=== PATIENT | female | born 1960 | race Caucasian/White ===

== ENCOUNTER 2020-01-19 15:25 | Emergency (ER) | payer OTHER, SELFPAY ==
[2020-01-19 15:30] VITALS: BP 136/90; PULSE 78; RESP 14; TEMP 36.4; O2SAT 98; BMI 33.6
--- NOTE | 2020-01-19 15:39 | XR_ITS ---
WS: [id number] LEFT SECOND FINGER 3 VIEW TECHNIQUE: PA, oblique and lateral. HISTORY: Trauma. COMPARISON: None available. Comminuted fracture with soft tissue swelling involving the terminal tuft of the second finger. There are additional small osseous fragments at the second DIP joint and partial subluxation at the DIP roberto int. Mild soft tissue edema. XR/XR finger LT min 2V [id number] IMPRESSION: 1. Comminuted fracture terminal tuft second finger. 2. Small osseous fragments at the second DIP joint along with partial subluxat ion.
--- NOTE | 2020-01-19 15:40 | ED_ITS ---
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 Patient states her tetanus was within the last year. complaint: injury to: left and finger Onset (ago): minute(s) Other Extremity Injury: Left: fingers Other injuries: none Handedness: right Place: home Relieving factors: none Exacerbating factors: movement of extremity Associated symptoms: Reports no associated symptoms Review of Systems Skin/Breast: Reports: other (skin laceration; L 2nd finger) Neuro: Denies: numbness in extremities or changes in sensation PFS ED PFSH: Social History Smoking and tobacco status: never smoked Physical Exam Const: COMMON NORMALS: no apparent distress, average body habitus, oriented x3, no limitations, healthy appearing, alert and well nourished Extremity: OTHER: laceration overlying the dorsal extending around to volar surface DIP joint of L 2nd digit; there is an extensor tendon laceration causing unopposed flexion of the DIP joint; small nail laceration probably extending into nailbed noted Neuro: COMMON NORMALS: oriented x3 SENSORIUM/ORIENTATION: Yes alert Skin: OTHER: see extremity assessment Procedures Laceration Laceration 1: Site: hand (finger ) Side (If applicable): left Size (cm): 2.0 Description: irregular Depth: simple, single layer Local Anesthetic: lidocaine 1% Amount of anesthesia used (mL): 3.0 Pre-repair: wound explored (extensor tendon laceration present ) and irrigated extensively Skin layer closed with: nylon Size (cm): 4-0 Number of sutures: 9 Technique: simple, interrupted Subcutaneous layer closed with: vicryl (through nail bed/nail plate) Size: 5-0 Number of sutures: 2 Technique: simple, interrupted Course Vital Signs: Vital signs: Vital Signs Temperature 97.6 F 01/19/20 15:30 Pulse Rate 78 01/19/20 17:28 Respiratory Rate 16 01/19/20 17:28 Blood Pressure 116/75 01/19/20 17:28 Pulse Oximetry 98 01/19/20 17:28 MDM - Extremity Injury (Upper) MDM Narrative: Medical decision making narrative: Pt was given IV abx here. The finger was repaired as documented and splinted with the DIP joint extended. She [place] [facility] [place] if [place] as she is an [employer] [place] and her out of network deductible is high. Will go ahead and have CM try to set her up with an appointment to see Dr. Gilmore in hopes that he can repair her digit. She was warned that a hand surgeon may be warranted. Patient will be given pain medications and oral antibiotics. Imaging Data^: L index finger XR: Radiologist's impression: [address] [address] XRay Report Signed Patient: Yolande Linder Unit #: [id number] : 1960 Age/Sex: 59 / F ADM Date: 01/19/20 Loc: ER Room/Bed: Attending Dr: Ordering Provider/Ordering MD: Marisol Starr Date of Service: 01/19/20 Procedure(s): XR finger LT min 2V [id number] Accession Number(s): [id number] Report Number: [id number] WS: [id number] LEFT SECOND FINGER 3 VIEW TECHNIQUE: PA, oblique and lateral. HISTORY: Trauma. COMPARISON: None available. Comminuted fracture with soft tissue swelling involving the terminal tuft of the second finger. There are additional small osseous fragments at the second DIP joint and partial subluxation at the DIP joint. Mild soft tissue edema. XR/XR finger LT min 2V [id number] IMPRESSION: 1. Comminuted fracture terminal tuft second finger. 2. Small osseous fragments at the second DIP joint along with partial subluxation. Dictated By: Angelica Zhang DO Signed By: Angelica Zhang DO Signed Date/Time: 01/19/201621 DD/ 16 Discharge Plan Discharge Patient Disposition: Home, Self-Care Clinical Impression: Open fracture of tuft of distal phalanx of finger, Subluxation of distal interphalangeal (DIP) joint of finger, Laceration of finger, left, with tendon Condition: Stable Prescriptions: New hydrocodone-acetaminophen 5-325 mg tablet 1 tab PO Q4H PRN (Reason: pain) Qty: 20 RF: 0 Keflex 500 mg capsule 500 mg PO Q6H 7 Days Qty: 28 RF: 0 No Action levothyroxine 75 mcg tablet 75 mcg PO DAILY RF: 0 sertraline 50 mg tablet 25 mg PO DAILY RF: 0 duloxetine 30 mg capsule,delayed release(DR/EC) 30 mg PO DAILY RF: 0 Linzess 290 mcg capsule 290 mcg PO DAILY PRN (Reason: unknown) RF: 0 Discharge Orders: Discharge Order (Routine); Ordered 01/19/20 Ordered By: Marisol Starr Referrals: Shama Feliz MD [Primary Care Provider] - Activity Restrictions/Additional Instructions: Keep splint and dressing on finger at all times apart from cleansing wound which you need to be doing with warm soapy water several times daily. We will get you follow-up with Dr. Gilmore in hopes that he can repair your finger instead of having to send you to a hand surgeon in [place]. Monitor for signs of infection such as redness, drainage, increased pain. Interventions: ED Discharge Assessment Last Done: 01/19/20 17:28 Discharge Date/Time: 01/19/20 17:28 Coding Level of Care Code ED Senior It Project Manager for Helena Weldon Exam Problem Focused
[2020-01-19] MEDS: ondansetron 2 mg/ML SDV 2 mL 4 MG IVP (15:45)
[2020-01-19 15:47] VITALS: RESP 16
[2020-01-19] MEDS: morphine 4 mg/mL SDV 1 mL IVP (15:47)
[2020-01-19] MEDS: ceFAZolin 1,000 mg SDV 1000 MG IVP (15:59)
--- NOTE | 2020-01-19 17:26 | PC.NURSE ---
Wound dressing: Wound cleaned with saline after wound repair. Wound dressed with non-stick dressing and wrapped with kerlix
[2020-01-19 17:28] VITALS: BP 116/75; PULSE 78; RESP 16; O2SAT 98
--- NOTE | 2020-01-20 11:34 | DCPLANNER ---
internet manager had message to schedule a follow up appointment for patient with ortho. internet manager called the ortho clinic, spoke with Samia, gave clinic patients information. internet manager was told that patients information would be printed and reviewed. Clinic will call residential case manager and patient with appointment information.
--- NOTE | 2020-02-06 15:16 | DCPLANNER ---
Patient had follow up appointment scheduled for 01.23.20 and patient did attend the appointment.
== END 2020-01-19 17:28 | disposition home or self-care (01) ==
PROVIDERS: Emergency Provider Physician Assistant; Family Provider Internal Medicine; PCP Internal Medicine
DX: S62.631B Displaced fracture of distal phalanx of left index finger, initial encounter for open fracture (principal); S66.321A Laceration of extensor muscle, fascia and tendon of left index finger at wrist and hand level, initial encounter; W31.89XA Contact with other specified machinery, initial encounter
CPT/HCPCS: 12041; 12044; 12345; 29130; 73140; 96374; 96375; 99283; J0690; J2270; J2405

== ENCOUNTER 2020-01-23 11:12 | Day surgery (SDC) | payer OTHER, SELFPAY ==
--- NOTE | 2020-01-23 | XR_ITS ---
WS: [id number] INTRAOPERATIVE TECHNIQUE: 2 Spot fluoroscopic images for intraoperative purposes. FLUOROSCOPY TIME: 2 seconds CLINICAL INFORMATION: ORIF LEFT INDEX FINGER COMPARISON: None. FINDINGS: Percutaneous pin fixation across the second DIP. XR/XR finger LT min 2V [id number] IMPRESSION: Images obtained for intraoperative purposes.
--- NOTE | 2020-01-23 | SCC_ITS ---
Procedure Done: Debridement of wound to include skin, subcutaneous tissue, tendinous tissue left index finger Pinning of near amputated distal phalanx to middle phalanx for stabilization of soft tissues and to protect repair Repair of extensor tendon to left index finger using palmaris longus tendon interposition autograft. 2 seconds of fluoroscopic guidance, for a cumulative dose of 4.68 mGy, was provided to Dr. Gilmore by the radiology department. C-arm images of the LEFT finger were saved for the patient's permanent record. CHLOÉ
--- NOTE | 2020-01-23 11:42 | P.ANESASSM_ITS ---
Pre-Anesthetic Assessment Pre-Anesthetic Assessment: Height/Weight: Height 1.63 m Preop Diagnosis: Extensor tendon laceration left index finger Proposed Procedure: Operation Date: 01/23/20 13:45 Proposed Procedures p Left index finger extensor tendon repair with pinning and possible [place] 98306 S61.219A(Left) - Boaz Gilmore DO Familial anesthetic complications: None Was Beta Jamir taken within 24 hours: N/A Last intake: NPO > 8 hrs, except sips of water with pills Social: Social History: No alcohol and No tobacco Exam: Pre-Anes Outpt Exam: alert, oriented x 3, clear to auscultation bilaterally and regular rate & rhythm Airway: Cervical ROM: WNL Additional comments: missing Pulmonary: Pulmonary: None reported CV/HEM: CV/HEM: None reported : : None reported Hepatic: Hepatic: None reported GI: GI: None reported Metabolic: Metabolic: Thyroid Musc/skel: Musc/skel: None reported Comments: Finger Laceration Neuropsych: Neuropsych: Depression Anesthetic Plan: ASA status: 2 Anesthesia: Regional (specify below) Other: gloria block Risk of > 500 ml blood loss (7ml/kg in children): No PFSH Anesthesia PFSH: Social History Smoking and tobacco status: never smoked Data Anesthesia Cardiac Studies: No Data to Display
[2020-01-23 12:11] VITALS: BP 128/70; PULSE 86; RESP 18; O2SAT 94
[2020-01-23 12:37] VITALS: BMI 32.5
[2020-01-23] MEDS: ketorolac 30 mg/mL INJ IVP (12:53)
[2020-01-23] MEDS: sodium chloride 0.9% 1,000 ML 30 ML IV (12:55)
[2020-01-23] MEDS: cefUROXime 1,500 MG in sodium chloride 0.9% (plus) 50 ML 100 MG IV (12:55)
[2020-01-23] MEDS: neomycin-poly-bacitracin oint 28 gm 1 APPLIC TOPICAL (14:45)
[2020-01-23] MEDS: lidocaine 1% INJ 20 mL SUBCUT (14:57)
[2020-01-23 15:07] VITALS: BP 145/79; PULSE 71; RESP 18; TEMP 36.4; O2SAT 93
[2020-01-23 15:15] VITALS: BP 152/84; PULSE 70; RESP 18; O2SAT 98
[2020-01-23 15:22] VITALS: BP 162/96; PULSE 71; RESP 18; O2SAT 97
--- NOTE | 2020-01-23 15:36 | P.OP_ITS ---
Operative Report Date of procedure: January 23, 2020 Pre-op Diagnosis: Extensor tendon laceration left index finger Post-op Diagnosis: Open fracture distal phalanx left index finger Post-op Findings: Near complete amputation of left index finger at the distal interphalangeal joint Approximately 60% flexor tendon laceration at distal interphalangeal joint Complete laceration of extensor tendon with shredding and loss of tendon substance. Some maceration of skin on the dorsum of the left index finger Procedure Done: Debridement of wound to include skin, subcutaneous tissue, tendinous tissue left index finger Pinning of near amputated distal phalanx to middle phalanx for stabilization of soft tissues and to protect repair Repair of extensor tendon to left index finger using palmaris longus tendon interposition autograft. treatment without manipulation of open fracture distal phalanx left index finger Implants: One 0.045 inch K wire Specimens removed/disposition: Debrided tissues from wound disposed of in OR Aerobic and anaerobic cultures submitted at beginning of case prior to washing out of wound Pathology: other (cultures sent) Surgeon: Boaz Gilmore Anesthesia: Other (Theodora block) Estimated blood loss (mL): 5 Tourniquet time (min): 107 Complications: No apparent complications Findings: This factory placement of pin stabilizing the DIP joint of the left index finger at 0 degrees flexion extension. Condition: stable Disposition: same day Brief History: 59-year-old white female who was using a grinder gear and had the misfortune of sticking her gloved hand near the drive belt and her finger was sucked into the mechanism causing sustained a laceration to her index finger. She was seen in the emergency room and felt to have extensor tendon laceration she had obvious droop posture to the index finger at the DIP joint. Wound was irrigated incision was closed loosely she was started on Keflex and referred for orthopedic care. She had some concern with streaking and saw her primary care doctor who advised her to go to the emergency room hospital in [place]. She was seen in the emergency room and was informed that she would have to be referred to a hand surgeon in the area in [place] and they would not see her until next week. Our office had been attempting to contact the patient and she was seen in the office today on the date of surgery January 23, 2020 and noted that she was able to slightly flex the index finger of the left hand at the DIP and PIP joints. She was unable to extend the index finger at the DIP joint. Sensation is decreased to the tip of the finger. The finger had a ruborous look but did not appear frankly cyanotic. There is no streaking proximally up the arm. I recommended to her that we remove sutures explore the wound it appears that her flexor tendon is intact and does not require surgery does appear that her extensor mechanism is completely disrupted. As this is not a sharp laceration or could be maceration to the tendon and I discussed with her potential need for an interposition autograft. She was agreeable to proceed with surgery. Risk of surgery include but are not limited to infection, nerve/blood vessel/injury, failure of the repair, stiffness at the joint. Risks of surgery also include blood clots, heart attack, stroke risk up to including . Procedure: 1.5 g Zinacef Patient identified. Surgical site signed. Surgical permit signed. Patient was taken to the operating room. She is transferred to the operating room table. She is placed under general anesthesia without difficulty. A tourniquet was placed about the upper aspect of the left arm. The operative limb was then sterilely prepped and draped usual fashion. A timeout was performed. The operative limb was exsanguinated using Esmarch bandage tourniquet inflated 250 mmHg pressure. Removed previously placed sutures in a laceration that was ne cosme circumferential just proximal to the level of the distal interphalangeal joint of the index finger. Purulent fluid was noted as we removed the sutures purulent fluid was expressed and aerobic and anaerobic cultures were obtained. Exploring the wound revealed that the tip of the finger to include the entirety of the distal phalanx was held on solely by a bridge of skin and 60% of the flexor tendon. The remaining portion of this retained flexor tendon is very healthy in appearance without fraying. The wound was irrigated with Betadine-containing saline solution and antibiotic containing saline solution. I then pinned the retrograde fashion with a 0.045 inch K wire distal phalanx to the middle phalanx in neutral. I debrided the skin edges lightly so we could primarily close the wound. The patient's extensor tendon was identified. There was a small portion of the tendon attached at the dorsal lip of the distal phalanx. There is a mop-like remnant of the extensor tendon at the distal to mid level of the middle phalanx buttoning intact extensor expansion over the PIP joint. Recognizing the extensor tendon cannot be repaired primarily. He made a series of short incision on the volar aspect of the forearm and harvested the palmaris longus longus tendon. The free end of the tendon was sutured to the dorsum of the distal phalanx at the stump of the intact tendon using interrupted sutures of 4054. I made a small transverse incision through the extensor tendon that was intact just distal to the PIP joint. I fed the intact tendon underneath the frayed edges of the extensor tendon deliver the tendon through the small rent and then overlapped it on itself attempting to engage the appropriate tension for the extensor tendon and suturing it in place and cutting off excess tendon at the distal phalanx. I then sutured the tendon graft into the intact proximal extent of the extensor tendon to the index finger using a sutures of 4-0 FiberWire. Then sutured the 2 limbs of the graft that together using a sutures of 4-0 FiberWire. The wounds wounds were irrigated Betadine-containing saline solution followed by antibiotic containing saline solution. The volar incisions were closed with 4-0 nylon on skin. The incision about the index finger that was created to expose the underlying extensor tendon was closed with sutures of 4-0 nylon. A digital block was performed using 10 mL of 1% lidocaine half percent Marcaine. Antibiotic ointment was applied to the incision lines. The K wire was cut outside the tip of the index finger and appropriate sized Jergen's ball was applied. Sterile dressings were applied. Tourniquet was deflated during application of dressings. A dorsal radial gutter splint was applied to the patient's hand with the wrist in neutral/MCP joints flexed to 75? the DIP and PIP joints in full extension. An Leobardo overwrap was applied. The patient was aroused from general anesthesia. She was taken to recovery. She tolerated surgery well. All counts are correct.
[2020-01-23] MEDS: HYDROcodone-acetaminophen 5-325 mg Tablet 1 TAB PO (16:15)
[2020-01-23 17:13] VITALS: PULSE 86; TEMP 36.4
== END 2020-01-23 17:09 | disposition home or self-care (01) ==
PROVIDERS: Family Provider Internal Medicine; PCP Internal Medicine; Visit Provider Orthopaedic Surgery
PROC: (CPT 26420; principal; 2020-01-23 13:25)
DX: S62.631A Displaced fracture of distal phalanx of left index finger, initial encounter for closed fracture (principal); S66.321A Laceration of extensor muscle, fascia and tendon of left index finger at wrist and hand level, initial encounter; W23.0XXA Caught, crushed, jammed, or pinched between moving objects, initial encounter; Z79.1 Long term (current) use of non-steroidal anti-inflammatories (NSAID); F32.9 Major depressive disorder, single episode, unspecified
CPT/HCPCS: 26420; 26765; 12345; 73140; 76000; 87070; 87075; 87205; 96365; 96374; C1713; J0131; J0697; J1580; J1885; J2001; J2250; J2704; J3010; J3490; J7030

== ENCOUNTER → 2020-03-04 08:23 | Outpatient (BNVA) | payer OTHER, SELFPAY | PROVIDERS: Family Provider Internal Medicine; PCP Internal Medicine; Visit Provider Orthopaedic Surgery | DX: S62.639B Displaced fracture of distal phalanx of unspecified finger, initial encounter for open fracture (principal); S61.219A Laceration without foreign body of unspecified finger without damage to nail, initial encounter; S63.24 Subluxation of distal interphalangeal joint of finger; Z48.89 Encounter for other specified surgical aftercare | CPT/HCPCS: 73140 ==

== ENCOUNTER 2020-03-19 06:00 | Outpatient (CLI) | payer OTHER, SELFPAY | END 2020-03-19 06:01 | disposition home or self-care (01) | LOC: SPT 14:37 | PROVIDERS: PCP Internal Medicine; Visit Provider Orthopaedic Surgery | DX: Z46.89 Encounter for fitting and adjustment of other specified devices (principal) | CPT/HCPCS: 97165; L3925 ==

== ENCOUNTER → 2020-04-01 08:31 | Outpatient (BNVA) | payer OTHER, SELFPAY | PROVIDERS: PCP Internal Medicine; Visit Provider Orthopaedic Surgery | DX: M79.645 Pain in left finger(s) (principal) | CPT/HCPCS: 73140 ==

== ENCOUNTER → 2020-05-11 09:06 | Outpatient (BNVA) | payer OTHER, SELFPAY | PROVIDERS: PCP Internal Medicine; Visit Provider Dermatology | DX: L82.1 Other seborrheic keratosis (principal); L73.8 Other specified follicular disorders; L85.3 Xerosis cutis; L57.0 Actinic keratosis; Z12.83 Encounter for screening for malignant neoplasm of skin | CPT/HCPCS: 17000; 17003; 99202; 99203 ==

== ENCOUNTER → 2020-07-05 08:00 | Outpatient (BNVA) | payer OTHER, SELFPAY | PROVIDERS: PCP Internal Medicine; Visit Provider Nurse Practitioner Family | DX: E03.9 Hypothyroidism, unspecified (principal); R53.83 Other fatigue | CPT/HCPCS: 80053; 80061; 82306; 84443; 85025 ==

== ENCOUNTER 2020-07-15 08:55 | Outpatient (CLI) | payer OTHER, SELFPAY ==
--- NOTE | 2020-07-15 09:22 | XR_ITS ---
WS: [id number] Chest 2 views, 07/15/2020 Clinical Data: SHORTNESS OF BREATH Comparison: Portable chest, 07/10/2015. Findings: No nodules, masses or effusions are seen. The heart is normal. The pulmonary vascularity is not increased. No pneumonia or pneumothorax is seen. XR/XR chest 2V* [id number] Impression: Negative chest.
== END 2020-07-15 08:56 | disposition home or self-care (01) ==
LOC: RAD 09:01
PROVIDERS: PCP Internal Medicine; Visit Provider Internal Medicine
DX: R06.02 Shortness of breath (principal)
CPT/HCPCS: 71046

== ENCOUNTER → 2020-07-30 11:37 | Outpatient (BNVA) | payer OTHER, SELFPAY | PROVIDERS: PCP Internal Medicine; Visit Provider Surgery | DX: Z11.59 Encounter for screening for other viral diseases (principal) | CPT/HCPCS: 87635 ==

== ENCOUNTER 2020-09-07 09:36 | Outpatient (CLI) | payer OTHER, SELFPAY ==
--- NOTE | 2020-09-07 09:43 | MM_ITS ---
WS: [id number] Exam: [place] [id number] Date/Time of Exam: 09/07/2020 9:44 AM Reason For Exam: SCREENING VIEWS: MLO and CC views both breasts. Comparison made with prior exam of 10/03/2016. Findings: There was no sign of mass, architectural distortion or suspicious calcification in either breast. Sc attered fibroglandular densities MM/[place] [id number] Impression: BI-RADS: 2-Benign FOLLOW-UP: 1 Year Follow-up This mammogram was also analyzed by the Computer Aided Detection System R2 Imag e Clutch Specialist.
== END 2020-09-07 09:37 | disposition home or self-care (01) ==
PROVIDERS: PCP Internal Medicine; Visit Provider Internal Medicine
DX: Z12.31 Encounter for screening mammogram for malignant neoplasm of breast (principal)
CPT/HCPCS: 77067

== ENCOUNTER → 2020-12-30 11:00 | Outpatient (BNVA) | payer OTHER, SELFPAY | PROVIDERS: PCP Internal Medicine; Visit Provider Internal Medicine | DX: R41.3 Other amnesia (principal); E03.9 Hypothyroidism, unspecified | CPT/HCPCS: 80053; 80061; 82607; 82746; 84443; 85025 ==

== ENCOUNTER 2021-09-19 15:16 | Outpatient (CLI) | payer OTHER, SELFPAY ==
--- NOTE | 2021-09-19 15:25 | MM_ITS ---
WS: [id number] BILATERAL DIGITAL SCREENING MAMMOGRAPHY WITH CAD CLINICAL INFORMATION: SCREENING HISTORY: Screening mammogram. No current complaints. COMPARISON: September 07, 2020 TECHNIQUE: Bilateral CC and MLO views. FINDINGS: The breasts are composed of heterogeneous fibroglandular density tissue, which can limit the detectio n of small underlying mass lesions. No suspicious mass, asymmetry, calcifications, or architectural d istortion. No evidence of malignancy. MM/[place] [id number] IMPRESSION: BI-RADS: 1-Negative FOLLOW UP: 1 Year Follow-up Recommend return to annual screening mammography.
== END 2021-09-19 15:17 | disposition home or self-care (01) ==
LOC: RADSHAW 15:21
PROVIDERS: PCP Internal Medicine; Visit Provider Internal Medicine
DX: Z12.31 Encounter for screening mammogram for malignant neoplasm of breast (principal)
CPT/HCPCS: 77067

== ENCOUNTER → 2021-10-18 16:26 | Outpatient (BNVA) | payer OTHER, SELFPAY | PROVIDERS: PCP Internal Medicine; Visit Provider Internal Medicine | DX: R30.0 Dysuria (principal); R32 Unspecified urinary incontinence; E03.9 Hypothyroidism, unspecified; R09.1 Pleurisy | CPT/HCPCS: 80053; 80061; 83550; 84443; 85651 ==

== ENCOUNTER → 2022-02-16 15:09 | Outpatient (BNVA) | payer OTHER, SELFPAY | PROVIDERS: PCP Internal Medicine; Visit Provider Internal Medicine | DX: R07.9 Chest pain, unspecified (principal); R06.02 Shortness of breath | CPT/HCPCS: 80053; 80061; 82607; 84443; 85025; 85651; 86140 ==

== ENCOUNTER → 2022-07-11 09:10 | Outpatient (BNVA) | payer OTHER, SELFPAY | PROVIDERS: PCP Family Medicine; Visit Provider Family Medicine | DX: Z76.89 Persons encountering health services in other specified circumstances (principal); E03.9 Hypothyroidism, unspecified; M54.31 Sciatica, right side | CPT/HCPCS: 80053; 84439; 84443; 86140 ==

== ENCOUNTER 2022-09-21 08:09 | Outpatient (CLI) | payer OTHER, SELFPAY ==
--- NOTE | 2022-09-21 08:16 | MM_ITS ---
WS: [id number] BILATERAL SCREENING DIGITAL TOMOSYNTHESIS MAMMOGRAM WITH CAD HISTORY: SCREENING COMPARISON: 09/19/2021 and 09/07/2020 Bilateral CC and MLO views with tomosynthesis and synthetic mammography submitted. Computer aided det ection analyzed. Breast composition: There are scattered areas of fibroglandular density. No suspicious masses, microc alcifications or architectural distortion. MM/[place] [id number] IMPRESSION: BI-RADS: 1-Negative FOLLOW UP: 1 Year Follow-up
== END 2022-09-21 08:10 | disposition home or self-care (01) ==
LOC: RAD 08:10
PROVIDERS: PCP Family Medicine; Visit Provider Family Medicine
DX: Z12.31 Encounter for screening mammogram for malignant neoplasm of breast (principal)
CPT/HCPCS: 77063; 77067

== ENCOUNTER 2022-12-13 16:05 | Outpatient (CLI) | payer OTHER, SELFPAY ==
--- NOTE | 2022-12-13 16:41 | XR_ITS ---
WS: [id number] Exam: XR lumbar spine 2-3V* [id number] Date/Time of Exam: 12/13/2022 4:41 PM Reason For Exam: Back pain, incontinence, Sciatica on the Right. No fracture or dislocation. Disc spaces are relatively well maintained. There appears to be partial l umbarization of S1 with left-sided batwing transverse process and pseudoarthrosis. Posterior elements are intact. Osteopenia. Minimal spondylosis. XR/XR lumbar spine 2-3V* [id number] IMPRESSION: 1. Partial lumbarization of S1 with left-sided batwing transverse process and p seudoarthrosis. 2. Minimal degenerative changes and osteopenia.
--- NOTE | 2022-12-13 16:41 | XR_ITS ---
WS: [id number] Exam: XR pelvis 1-2V* [id number] Date/Time of Exam: 12/13/2022 4:41 PM Reason For Exam: Back pain, incontinence, Sciatica on the Right. No acute fracture or dislocation. The hips are intact. Left batwing transverse process of L5 with pse udoarthrosis at the left sacrum. Small nonspecific pelvic calcifications probably phleboliths. XR/XR pelvis 1-2V* [id number] IMPRESSION: 1. No fracture or bone destruction. 2. Partial sacralization of L5 on the left with pseudoarthrosis.
== END 2022-12-13 16:06 | disposition home or self-care (01) ==
LOC: RAD 16:07
PROVIDERS: PCP Family Medicine; Visit Provider Family Medicine
DX: R26.9 Unspecified abnormalities of gait and mobility (principal); R32 Unspecified urinary incontinence; M47.896 Other spondylosis, lumbar region
CPT/HCPCS: 72100; 72170; 81000

== ENCOUNTER 2023-01-10 09:47 | Outpatient (CLI) | payer OTHER, SELFPAY ==
--- NOTE | 2023-01-10 10:15 | MR_ITS ---
WS: [id number] MRI HEAD WITH CONTRAST TECHNIQUE: Sagittal T1, T2 axial, T2 axial FLAIR, axial susceptibility weighted imaging, axial diffus ion weighted images, and coronal T2 images were obtained. Pre and post-T1 axial and post T1 coronal i mages. ADC and FSPGR images. CLINICAL INFORMATION: Memory loss, incontinence, gait disturbance COMPARISON: None. FINDINGS: No evidence of restricted diffusion to suggest acute ischemia. Ventricular system and basal cisterns are patent. Mild small vessel changes. Moderate parenchymal volume loss. Normal posterior fossa. Norm al vascular flow voids at the skull base. No extra-axial fluid collections. No evidence of mass or ma ss effect. Paranasal sinuses are well aerated. Retention cyst or polyp RIGHT sphenoid sinus. RIGHT ma stoid effusion. Normal posterior nasopharynx. No hemosiderin on susceptibly weighted images. Normal optic chiasm and pituitary infundibulum. Temporal lobes and hippocampal formations are normal in appearance. Normal ca vernous sinuses and Meckel's cave. No abnormal intracranial enhancement. Incidental benign venous angioma LEFT frontal lobe laterally. N ormal visualized dural venous sinuses. MR/MR head wo/w con [id number] IMPRESSION: 1. No evidence of restricted diffusion to suggest acute ischemia. 2. Mild small vessel changes with moderate parenchymal volume loss. 3. RIGHT mastoid effusion. Retention cyst or polyp RIGHT sphenoid sinus measur ing 1.4 x 1.1 cm along the sphenoid sinus ostia. 4. RIGHT mastoid effusion. 5. No abnormal intercranial enhancement. 6. Incidental benign venous angioma LEFT posterior frontal lobe laterally.
[2023-01-10] MEDS: gadobenate dimeglumine 20 mL vial IV (10:58)
== END 2023-01-10 09:48 | disposition home or self-care (01) ==
LOC: RAD 09:49
PROVIDERS: PCP Family Medicine; Visit Provider Family Medicine
DX: R26.9 Unspecified abnormalities of gait and mobility (principal); R32 Unspecified urinary incontinence; R41.3 Other amnesia; Q28.3 Other malformations of cerebral vessels
CPT/HCPCS: 70553; A9577

== ENCOUNTER → 2023-01-31 10:13 | Outpatient (BNVA) | payer OTHER, SELFPAY | PROVIDERS: PCP Family Medicine; Visit Provider Family Medicine | DX: R26.9 Unspecified abnormalities of gait and mobility (principal); G62.9 Polyneuropathy, unspecified; R22.43 Localized swelling, mass and lump, lower limb, bilateral; R32 Unspecified urinary incontinence; E03.9 Hypothyroidism, unspecified; R41.3 Other amnesia | CPT/HCPCS: 80053; 80061; 83036; 83735; 84439; 84443; 84481; 85025 ==

== ENCOUNTER → 2023-03-13 14:25 | Outpatient (BNVA) | payer OTHER, SELFPAY | PROVIDERS: PCP Family Medicine; Visit Provider Podiatrist Foot & Ankle Surgery | DX: M72.2 Plantar fascial fibromatosis (principal) | CPT/HCPCS: 73630 ==

== ENCOUNTER 2023-03-20 07:45 | Outpatient (CLI) | payer OTHER, SELFPAY ==
--- NOTE | 2023-03-20 08:00 | MR_ITS ---
WS: [id number] MRI LUMBAR SPINE NONCONTRAST TECHNIQUE: Sagittal T1, T2 and STIR imaging. Axial T1 and T2 imaging. CLINICAL INFORMATION: R29.90 - Unspecified symptoms and signs involving the ner... COMPARISON: None. FINDINGS: Counting performed from the craniocervical junction. 5 lumbar vertebral bodies. S1 is lumba rized. Mild lumbar curve. No acute compression. Slight retrolisthesis L5 on S1. No high-grade central canal stenosis. L1-L2: Shallow RIGHT pericentral protrusion. Slight effacement of the ventral thecal sac. Mild facet arthropathy. Spinal canal and foramen are patent. L2-L3: Mild annular bulging. Mild facet arthropathy. Spinal canal and foramen are patent. Tiny RIGHT foraminal protrusion with mild RIGHT foraminal narrowing. L3-L4: Mild annular bulging. Narrowing of the subarticular recess bilaterally. Mild bilateral foramin al narrowing. L4-L5: Mild annular bulging. Slight impingement RIGHT subarticular recess and traversing RIGHT L5 ner ve root. Mild RIGHT and no LEFT foraminal narrowing. Mild facet arthropathy. L5-S1: Mild annular bulging. Slight impingement subarticular recess bilaterally RIGHT greater than LE FT. Mild RIGHT foraminal narrowing. Mild facet arthropathy. S1-S2: S1 is partially lumbarized. Spinal canal and foramen are patent. Mild facet arthropathy. Visualized pelvic bony structures: Normal. Paravertebral soft tissues: Normal. Central disc protrusions in the mid thoracic spine at T7-T8 and T9-T10 with indentation on the thorac ic cord at T7-T8 with moderate central canal stenosis. Mild central canal stenosis at C5-C6. MR/MR lumbar spine wo con* [id number] IMPRESSION: 1. Counting performed the craniocervical junction. 5 lumbar vertebral bodies. S1 is partially lumbarized 2. Central disc protrusions in the mid thoracic spine at T7-T8 and T9-T10 with indentation on the thoracic cord at T7-T8 with moderate central canal stenosis . Recommend thoracic spine MRI. 3. Small RIGHT foraminal protrusion L2-L3 with mild RIGHT foraminal narrowing. 4. Mild bilateral L3-L4 foraminal narrowing. 5. Annular bulging L4-L5 with slight impingement on the RIGHT subarticular rec ess and mild RIGHT foraminal narrowing. 6. Disc bulging L5-S1 with slight impingement traversing RIGHT greater than LE FT S1 nerve roots. Mild RIGHT foraminal narrowing at this level.
== END 2023-03-20 07:46 | disposition home or self-care (01) ==
PROVIDERS: PCP Family Medicine; Visit Provider Psychiatry & Neurology Neurology
DX: R29.90 Unspecified symptoms and signs involving the nervous system (principal); M51.25 Other intervertebral disc displacement, thoracolumbar region; M48.07 Spinal stenosis, lumbosacral region; M48.04 Spinal stenosis, thoracic region
CPT/HCPCS: 72148

== ENCOUNTER 2023-05-08 13:24 | Outpatient (CLI) | payer OTHER, SELFPAY ==
--- NOTE | 2023-05-08 13:45 | MR_ITS ---
WS: [email or web address] MRI THORACIC SPINE WITHOUT CONTRAST TECHNIQUE: Sagittal T1, T2 and STIR imaging. Axial T2 imaging. Noncontrast imaging obtained. CLINICAL INFORMATION: R93.7 - Abnormal findings on diagnostic imaging of other ... COMPARISON: None. FINDINGS: Moderate thoracic kyphosis. No acute compression. No high-grade central canal narrowing. Mild chronic anterior wedging mid thoracic spine. Central disc protrusions more prominent at T7-T8, T8-T9, T9-T10 with slight indentation on the thoracic cord at these levels with mild central canal stenosis. Cord signal remains normal. Mild disc bulging L1-L2. Mild to moderate facet arthropathy in the lower thora cic spine. T7-T8: Central disc protrusion with indentation on the thoracic cord. Mild central canal stenosis. Fo ramen are patent. T8 -9: Shallow RIGHT pericentral protrusion with indentation the RIGHT ventral thoracic cord. Mild fa cet arthropathy. Mild RIGHT foraminal narrowing. T9-T10: Central disc protrusion with indentation on the thoracic cord. Mild central canal stenosis. M ild facet arthropathy. Mild RIGHT and no significant LEFT foraminal narrowing. Mild bilateral T10-T11 bony foraminal narrowing. Normal caliber thoracic aorta. Partially visualized RIGHT hepatic cyst measuring 2.6 cm. Adrenal glan ds are normal. Mild chronic anterior wedging at T7, T8, and T9. MR/MR thoracic spin wo con* [id number] IMPRESSION: 1. Mild thoracic curve. Moderate Thoracic kyphosis. 2. Chronic anterior wedging at T7, T8 and T9. No acute appearing compression f ractures. 3. Small central disc protrusions at T7-T9 with slight indentation on the thor acic cord and mild central canal stenosis. Cord signal remains normal. 4. Mild to moderate facet arthropathy in the lower thoracic spine. 5. Partially evaluated RIGHT hepatic cyst measuring 2.6 cm.
== END 2023-05-08 13:25 | disposition home or self-care (01) ==
PROVIDERS: PCP Family Medicine; Visit Provider Psychiatry & Neurology Neurology
DX: R93.7 Abnormal findings on diagnostic imaging of other parts of musculoskeletal system (principal); M40.204 Unspecified kyphosis, thoracic region; M48.54XA Collapsed vertebra, not elsewhere classified, thoracic region, initial encounter for fracture; M51.24 Other intervertebral disc displacement, thoracic region; M47.814 Spondylosis without myelopathy or radiculopathy, thoracic region; K76.89 Other specified diseases of liver
CPT/HCPCS: 72146

== ENCOUNTER 2023-05-31 09:00 | Outpatient (CLI) | payer OTHER, SELFPAY ==
--- NOTE | 2023-05-24 09:30 | MR_ITS ---
WS: [email or web address] MRI CERVICAL SPINE NONCONTRAST TECHNIQUE: Sagittal T1, T2 and STIR imaging. Axial T2, gradient, and fiesta imaging. Patient refused gadolinium contrast CLINICAL INFORMATION: M54.9 - Dorsalgia, unspecified COMPARISON: None. FINDINGS: Straightening of the normal cervical lordosis. Disc osteophyte complex C5-C6 with slight retrolisthes is C5 on C6. Cord signal is normal. Mild central canal stenosis C5-C6 with slight indentation on cerv ical cord. C2-C3: Normal. C3-C4: Mild facet arthropathy. Mild RIGHT and no LEFT foraminal narrowing. C4-C5: Minimal disc osteophytic ridging. Mild facet arthropathy. Mild bilateral foraminal narrowing. C5-C6: Slight retrolisthesis. Disc osteophyte complex with endplate ridging. Moderate to severe LEFT and mild RIGHT bony foraminal narrowing. Moderate facet arthropathy. Mild central canal stenosis with slight indentation on cervical cord. C6-C7: Mild disc bulging with osteophytic ridging. Tiny RIGHT pericentral protrusion. Mild LEFT bony foraminal narrowing. Mild facet arthropathy. C7-T1: Mild disc osteophytic ridging. Mild LEFT and no significant RIGHT bony foraminal narrowing. Visualized brain stem structures: Normal. Prevertebral soft tissues: Normal.
--- NOTE | 2023-05-31 | MR_ITS ---
ADDENDUM WS: [email or web address] Patient return for gadolinium contrast. Sagittal and axial postgadolinium imaging obtained with fat saturation technique. No abnormal gadolinium enhancement. No abnormal enhancement within the cervical cord. No abnormal vertebral body or paravertebral soft tissue enhancement. No other suspicious findings. Moderate to severe left C5-6 bony foraminal narrowing as previously described. Mild central canal stenosis C5-6 due to disc osteophyte complex. Addendum Dictated By: Norris Maloney MD Addendum Signed By: Signed Date/Time: Addendum Cosigned By: WS: [email or web address] MRI CERVICAL SPINE NONCONTRAST TECHNIQUE: Sagittal T1, T2 and STIR imaging. Axial T2, gradient, and fiesta imaging. Patient refused gadolinium contrast CLINICAL INFORMATION: M54.9 - Dorsalgia, unspecified COMPARISON: None. FINDINGS: Straightening of the normal cervical lordosis. Disc osteophyte complex C5-C6 with slight retrolisthesis C5 on C6. Cord signal is normal. Mild central canal stenosis C5-C6 with slight indentation on cervical cord. C2-C3: Normal. C3-C4: Mild facet arthropathy. Mild RIGHT and no LEFT foraminal narrowing. C4-C5: Minimal disc osteophytic ridging. Mild facet arthropathy. Mild bilateral foraminal narrowing. C5-C6: Slight retrolisthesis. Disc osteophyte complex with endplate ridging. Moderate to severe LEFT and mild RIGHT bony foraminal narrowing. Moderate facet arthropathy. Mild central canal stenosis with slight indentation on cervical cord. C6-C7: Mild disc bulging with osteophytic ridging. Tiny RIGHT pericentral protrusion. Mild LEFT bony foraminal narrowing. Mild facet arthropathy. C7-T1: Mild disc osteophytic ridging. Mild LEFT and no significant RIGHT bony foraminal narrowing. Visualized brain stem structures: Normal. Prevertebral soft tissues: Normal. Dictated By: Norris Maloney MD Signed By: Signed Date/Time: DD/ 1036 MTDD
[2023-05-31] MEDS: gadobenate dimeglumine 20 mL vial IV (15:54)
== END 2023-05-31 18:00 | disposition home or self-care (01) ==
PROVIDERS: PCP Family Medicine; Visit Provider Psychiatry & Neurology Neurology
DX: M48.02 Spinal stenosis, cervical region (principal); M25.78 Osteophyte, vertebrae; M47.812 Spondylosis without myelopathy or radiculopathy, cervical region; M50.323 Other cervical disc degeneration at C6-C7 level
CPT/HCPCS: 72141; 72156; A9577

== ENCOUNTER → 2023-06-07 13:54 | Outpatient (BNVA) | payer OTHER, SELFPAY | PROVIDERS: PCP Family Medicine; Referring Provider Psychiatry & Neurology Neurology; Visit Provider Orthopaedic Surgery | DX: M47.816 Spondylosis without myelopathy or radiculopathy, lumbar region (principal) | CPT/HCPCS: 72110 ==

== ENCOUNTER → 2023-08-07 14:59 | Outpatient (BNVA) | payer OTHER, SELFPAY | PROVIDERS: PCP Family Medicine; Visit Provider Family Medicine | DX: E03.9 Hypothyroidism, unspecified (principal); E78.00 Pure hypercholesterolemia, unspecified | CPT/HCPCS: 80048; 80061; 84439; 84443 ==

== ENCOUNTER → 2023-09-18 08:36 | Outpatient (BNVA) | payer OTHER, SELFPAY | PROVIDERS: PCP Family Medicine; Visit Provider Nurse Practitioner Women's Health | DX: R10.2 Pelvic and perineal pain (principal) | CPT/HCPCS: 76857 ==

== ENCOUNTER 2023-09-27 12:29 | Outpatient (CLI) | payer OTHER, SELFPAY ==
--- NOTE | 2023-09-27 12:33 | MM_ITS ---
WS: [email or web address] SCREENING DIGITAL TOMOSYNTHESIS MAMMOGRAM WITH CAD HISTORY: Z12.39 - Encounter for other screening for malignant neop... COMPARISON: 09/21/2022 and 09/19/2021 Bilateral CC and MLO with tomosynthesis views submitted. Synthetic mammography reviewed. Computer aid ed detection analyzed. Breast composition: There are scattered areas of fibroglandular density. No suspicious masses, microc alcifications or architectural distortion. IMPRESSION: MM/[place] [id number] BI-RADS: 1-Negative FOLLOW UP: 1 Year Follow-up
--- NOTE | 2023-09-27 13:30 | XR_ITS ---
WS: [email or web address] DEXA (DUAL ENERGY X-RAY ABSORPTIOMETRY) Bone mineral density was performed using a EDITD machine. HISTORY: N95.9 - Unspecified menopausal and perimenopausal disorder COMPARISON: 09/30/2019 Lumbar spine BMD (L1-L4): 1.171 g/cm2 T score: -0.1 Z score: 0.6 Total hip BMD: Left: 1.023 g/cm2. T score: 0.1 Z score: 0.7 Right: 0.978 g/cm2. T score: -0.2 Z score: 0.3 10 year probability of a major osteoporotic fracture is 7.2%. Compared to the prior study from 09/30/2019. Lumbar spine bone mineral density has increased by 7.9%. Bilateral hips bone mineral density has increased by 3.2%. IMPRESSION: NORMAL BONE MINERAL DENSITY based upon the WHO classification for females. Significant increase in bone mineral density within the lumbar spine and hips since the prior study.
== END 2023-09-27 12:30 | disposition home or self-care (01) ==
LOC: RAD 12:29
PROVIDERS: PCP Family Medicine; Visit Provider Nurse Practitioner Women's Health
DX: N95.9 Unspecified menopausal and perimenopausal disorder (principal); Z13.820 Encounter for screening for osteoporosis; Z12.31 Encounter for screening mammogram for malignant neoplasm of breast
CPT/HCPCS: 77063; 77067; 77080

== ENCOUNTER → 2023-11-26 10:43 | Outpatient (BNVA) | payer OTHER, SELFPAY | PROVIDERS: PCP Family Medicine; Visit Provider Registered Nurse Neonatal Intensive Care | DX: M10.9 Gout, unspecified (principal) | CPT/HCPCS: 84550 ==

== ENCOUNTER → 2023-12-04 07:58 | Outpatient (BNVA) | payer OTHER, SELFPAY | PROVIDERS: PCP Family Medicine; Visit Provider Podiatrist Foot & Ankle Surgery | DX: M76.72 Peroneal tendinitis, left leg | CPT/HCPCS: 73610 ==

== ENCOUNTER → 2024-03-04 08:55 | Outpatient (BNVA) | payer OTHER, SELFPAY | PROVIDERS: PCP Family Medicine; Visit Provider Family Medicine | DX: R30.0 Dysuria (principal); R79.89 Other specified abnormal findings of blood chemistry; R53.1 Weakness; E03.9 Hypothyroidism, unspecified; G72.9 Myopathy, unspecified; F41.1 Generalized anxiety disorder; R29.898 Other symptoms and signs involving the musculoskeletal system; E83.42 Hypomagnesemia | CPT/HCPCS: 80053; 80061; 81000; 82306; 82607; 82746; 83735; 84439; 84443; 85025 ==

== ENCOUNTER → 2024-04-16 17:59 | Outpatient (BNVA) | payer OTHER, SELFPAY | PROVIDERS: PCP Family Medicine; Visit Provider Registered Nurse Neonatal Intensive Care | DX: M25.532 Pain in left wrist (principal) | CPT/HCPCS: 73110 ==

== ENCOUNTER 2024-05-12 06:00 | Outpatient (CLI) | payer OTHER, SELFPAY | END 2024-05-12 06:01 | disposition home or self-care (01) | LOC: RAD 07-01 15:24 | PROVIDERS: PCP Family Medicine; Visit Provider Psychiatry & Neurology Neurology | DX: R29.898 Other symptoms and signs involving the musculoskeletal system (principal) | CPT/HCPCS: 83090; 83921; 86160; 86162; 86235; 86255; 86376; 86431; 86592; 86780 ==

== ENCOUNTER 2024-10-01 07:29 | Outpatient (CLI) | payer OTHER, SELFPAY ==
--- NOTE | 2024-10-01 07:45 | MM_ITS ---
WS: [email or web address] BILATERAL SCREENING DIGITAL TOMOSYNTHESIS MAMMOGRAM WITH CAD HISTORY: SCREENING COMPARISON: 09/27/2023, 09/21/2022, 04/01/2019 Bilateral CC and MLO views with tomosynthesis and synthetic mammography submitted. Computer aided det ection analyzed. Breast composition: There are scattered areas of fibroglandular density. No suspicious masses, microc alcifications or architectural distortion. MM/MM scr BI tomosynthesis [id number] IMPRESSION: BI-RADS: 2 - Benign. FOLLOW UP: 1 Year Follow-up
== END 2024-10-01 07:30 | disposition home or self-care (01) ==
LOC: RAD 07:30
PROVIDERS: PCP Nurse Practitioner Women's Health; Visit Provider Family Medicine
DX: Z12.31 Encounter for screening mammogram for malignant neoplasm of breast (principal); R92.323 Mammographic fibroglandular density, bilateral breasts
CPT/HCPCS: 77063; 77067

== ENCOUNTER → 2025-02-05 10:57 | Outpatient (BNVA) | payer OTHER, SELFPAY | PROVIDERS: PCP Family Medicine; Visit Provider Family Medicine | DX: R39.15 Urgency of urination (principal); R30.0 Dysuria | CPT/HCPCS: 81000; 87086 ==

== ENCOUNTER → 2025-08-27 15:49 | Outpatient (BNVA) | payer OTHER, SELFPAY | PROVIDERS: PCP Family Medicine; Visit Provider Family Medicine | DX: Z11.4 Encounter for screening for human immunodeficiency virus [HIV] (principal); Z11.59 Encounter for screening for other viral diseases; E78.00 Pure hypercholesterolemia, unspecified; E03.9 Hypothyroidism, unspecified; R73.01 Impaired fasting glucose; E55.9 Vitamin D deficiency, unspecified; E53.8 Deficiency of other specified B group vitamins; G62.9 Polyneuropathy, unspecified; R26.89 Other abnormalities of gait and mobility; R53.1 Weakness | CPT/HCPCS: 80053; 82607; 83036; 83540; 84439; 84443; 84481; 85025; 86803; 87806 ==

== ENCOUNTER 2025-09-22 06:58 | Day surgery (SDC) | payer OTHER, SELFPAY ==
[2025-09-22 07:18] VITALS: BP 123/79; PULSE 89; RESP 18; TEMP 36.4; O2SAT 98; BMI 37.0
--- NOTE | 2025-09-22 07:50 | ANES.PREANE2 ---
Pre-Anesthetic Assessment Height/Weight: Height 1.63 m Weight 97.976 kg Temp Pulse Resp BP Pulse Ox O2 Del Method 97.6 F 89 18 123/79 98 Room Air 09/22/25 07:18 09/22/25 07:18 09/22/25 07:18 09/22/25 07:18 09/22/25 07:18 09/22/25 07:18 Preop Diagnosis: Screen Operation Date: 09/22/25 08:30 Proposed Procedures p Colonoscopy 10629 G0121 Z12.11(Not Applicable) - Pillo Gibbs MD Familial anesthetic complications: none Was Beta Jamir taken within 24 hours: N/A Was Clonidine taken within 24 hours: N/A Last intake: Intake Last Liquid Date 09/21/25 Last Liquid Time 19:00 Last Solid Date 09/20/25 Last Solid Time 18:00 Social No alcohol and No tobacco Exam alert, oriented x 3, clear to auscultation bilaterally and regular rate & rhythm Airway Cervical ROM: within normal limits Mallampati: Class III Dentition: full Pulmonary None reported CV/HEM None reported None reported Hepatic None reported GI None reported Metabolic Morbid Obesity and Thyroid Disease Musc/skel Weakness Neuropsych Anxiety memory loss Anesthetic Plan ASA status: 3 Anesthesia: MAC Risk of > 500 ml blood loss (7ml/kg in children): No Medications/Allergies Home Medications ?Medication ?Instructions ?Recorded ?Confirmed ?Last Taken ?Type fluticasone propionate 50 2 spray intranasal DAILY 6 months 01/25/24 09/22/25 09/21/25 Rx mcg/actuation nasal #16 grams spray,suspension estradiol 0.01% (0.1 mg/gram) 1 g vaginal .2-3 times/weekly 02/19/25 09/14/25 Unknown Rx vaginal cream (Estrace) #42.5 grams duloxetine 60 mg capsule,delayed 60 mg PO DAILY #90 caps 07/24/25 09/14/25 09/22/25 Rx release cholecalciferol (vitamin D3) 125 125 mcg PO DAILY 08/27/25 09/22/25 09/21/25 History mcg (5,000 unit) capsule magnesium glycinate 1 tab PO DAILY 08/27/25 09/22/25 09/21/25 History mirabegron 25 mg tablet,extended 25 mg PO DAILY 08/27/25 09/22/25 09/21/25 History release 24 hr (Myrbetriq) omega 2-gnf-mdg-fish oil 1,200 mg 2 cap PO DAILY 08/27/25 09/22/25 09/21/25 History (144 mg-216 mg) capsule (Fish Oil) vitamin B complex 1 tab PO DAILY 08/27/25 09/22/25 09/21/25 History vitamin K2 45 mcg capsule 45 mcg PO DAILY 08/27/25 09/22/25 09/21/25 History acetaminophen 500 mg tablet 500 mg PO BID 09/14/25 09/22/25 09/21/25 History baclofen 20 mg tablet 20 mg PO BID #14 tabs 09/14/25 09/14/25 Unknown Rx levothyroxine 75 mcg tablet 75 mcg PO DAILY 09/14/25 09/14/25 09/22/25 History nitrofurantoin 100 mg PO DAILY 09/14/25 09/22/25 09/21/25 History monohydrate/macrocrystals 100 mg capsule (Macrobid) Allergies Allergy/AdvReac Type Severity Reaction Status Date / Time Penicillins Allergy Intermediate ALGY-Rash Verified 09/22/25 07:18 Sulfa (Sulfonamide Allergy Intermediate ALGY-Rash Verified 09/22/25 07:18 Antibiotics) latex Allergy rash Verified 09/22/25 07:18 [facility] Anesthesia Medical History (Updated 09/14/25 @ 10:47 by Gino Kerr MD) Strain of lumbar region, initial encounter Fall, initial encounter Fasting hyperglycemia Vitamin B12 deficiency Vitamin D deficiency Chronic depressive disorder Balance problem and weakness of both legs since 12/14--nothing on all of [employer] MRIs, RPR neg; seeing DR. Quinonez--he has done biopsies, lab testing, had EEG but not sure on results of it Weakness of both legs Urinary incontinence saw urologist, had cystoscopy; Acquired hypothyroidism Surgical History (Updated 09/10/25 @ 08:38 by HANS Morales) Hx of hand surgery L index finger reattachment/tendon H/O exploratory laparotomy She reports 2 exploratory laparotomies after her hysterectomy for KATHLEEN--had ahesionolysis and R oophorectomy History of tonsillectomy History of placement of ear tubes as a child; as an adult had R ear tube one time Hx of tubal ligation (~1985) Hx of oophorectomy (~2001) R ovary--benign tumor Hx of hysterectomy (~1997) with left ovary taken. Benign tumor; had adhesionolysis Hx of appendectomy (~1997) Cataract extraction status of eye bilateral Family History Grandmother Breast cancer Maternal--dx age unknown Colon cancer Maternal--dx age unknown Heart disease Paternal Thyroid disease Paternal Hypercholesteremia Paternal Father Heart disease Hypercholesteremia Family/Other Ovarian cancer Paternal Aunt--dx age 70's Denies family history of Diabetes Hypertension Uterine cancer Stroke Social History Smoking and tobacco/nicotine status: never used tobacco/nicotine Alcohol intake: never Substance/Drug Use: never Household members: spouse Marital status: Number of children: 2 Highest education level completed: Associate Degree: Academic Program Current occupational status: employed 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
--- NOTE | 2025-09-22 08:14 | W.PM.OPSUD ---
Surgery/Procedure H&P Update DATE OF PROCEDURE: September 22, 2025 DATE H&P PERFORMED: 09/10/25 H&P UPDATE INFORMATION: I have reviewed H&P completed within last 30 days, I have examined patient prior to procedure, No changes to prior documentation and Risks and benefits of the procedure reviewed PREOP DIAGNOSIS: Screen PLANNED PROCEDURE: Operation Date: 09/22/25 08:30 Proposed Procedures p Colonoscopy 71490 G0121 Z12.11(Not Applicable) - Pillo Gibbs MD
[2025-09-22 08:33] VITALS: BP 117/69; PULSE 80; RESP 16; TEMP 36.2; O2SAT 96
[2025-09-22 08:40] VITALS: BP 118/77; PULSE 79; RESP 18; O2SAT 95
[2025-09-22 08:50] VITALS: BP 141/93; PULSE 73; RESP 18; O2SAT 96
--- NOTE | 2025-09-22 09:15 | ANE.PACU2 ---
Inpatient post-anesthesia follow up: Airway intact: Yes Vital signs: Temperature 97.2 F Pulse Rate 73 Respiratory Rate 18 Blood Pressure 141/93 Pulse Oximetry 96 Oxygen Delivery Me thod Room Air Oxygen Flow Rate Fraction of Inspir ed Oxygen Hydration adequate: Yes Nausea and vomiting: No Pain level: 1 Mental status: Baseline
== END 2025-09-22 09:15 | disposition home or self-care (01) ==
PROVIDERS: PCP Family Medicine; Visit Provider Student in an Organized Health Care Education/Training Program
PROC: 0DJD8ZZ Inspection of Lower Intestinal Tract, Via Natural or Artificial Opening Endoscopic (ICD-10-PCS; CPT 45378; principal; 2025-09-22 08:30)
DX: Z12.11 Encounter for screening for malignant neoplasm of colon (principal); E03.9 Hypothyroidism, unspecified; F32.89 Other specified depressive episodes; Z80.3 Family history of malignant neoplasm of breast; Z80.0 Family history of malignant neoplasm of digestive organs; Z80.41 Family history of malignant neoplasm of ovary; Z82.49 Family history of ischemic heart disease and other diseases of the circulatory system; E66.01 Morbid (severe) obesity due to excess calories; Z68.37 Body mass index [BMI] 37.0-37.9, adult; F41.9 Anxiety disorder, unspecified
CPT/HCPCS: 45378; J2704; J7030